=== PATIENT | female | born 1990 | race African-American/Black ===

== ENCOUNTER 2019-12-23 14:12 | Emergency (ER) | payer OTHER ==
[~2019-12-23] VITALS: Ht 175.3 cm; Wt 110.0 kg
[2019-12-23] MEDS ORDERED: LEVETIRACETAM 1000MG/100ML 100 ML IV ONE (15:45)
[2019-12-23 16:34] VITALS: BP 127/78
== END 2019-12-23 16:35 | disposition home or self-care (01) ==
LOC: ER 14:12
DX: S00.512A Abrasion of oral cavity, initial encounter (principal); R56.9 Unspecified convulsions; X58.XXXA Exposure to other specified factors, initial encounter; Y93.89 Activity, other specified; Y92.89 Other specified places as the place of occurrence of the external cause; Y99.8 Other external cause status
CPT/HCPCS: 96365; 99284; J1953

== ENCOUNTER 2021-11-16 14:41 | Emergency (ER) | payer OTHER ==
[~2021-11-16] VITALS: Ht 177.8 cm; Wt 144.0 kg
[2021-11-16] MEDS ORDERED: KEPPRA (14:59)
[2021-11-16] MEDS ORDERED: ACETAMINOPHEN 325MG TABLET PO STA (15:30)
[2021-11-16] MEDS ORDERED: LIDOCAINE 5% PATCH TOP SCH (15:30)
[2021-11-16] MEDS ORDERED: SODIUM CHLORIDE 0.9% 1,000 ML IV ONE (15:30)
[2021-11-16] MEDS ORDERED: LEVETIRACETAM 500MG/5ML CUP PO ONE (16:00)
[2021-11-16 17:29] LABS: BASOPHILS % 0.6 % (0.0-2.0); EOSINOPHILS % 0.1 % (0.0-5.0); HEMATOCRIT. 38.8 % (36.0-48.0); HEMOGLOBIN. 12.8 g/dL (12.0-16.0); LYMPHOCYTES % 15.1 % (20.0-50.0); MEAN CORPUSCULAR HEMOGLOBIN 26.8 pg (28.0-32.0); MEAN CORPUSCULAR VOLUME 81.1 fL (81.0-99.0); MEAN PLATELET VOLUME 8.1 fl (7.4-10.4); MONOCYTES % 7.6 % (2.0-8.0); NEUTROPHILS % 76.6 % (40.0-76.0); PLATELET 224 x1000/uL (130-400); RED BLOOD CELL COUNT 4.79 mill/uL (4.2-5.4); RED CELL DISTRIBUTION WIDTH 14.2 % (11.6-14.6)
[2021-11-16 17:37] VITALS: BP 134/83
[2021-11-16 17:38] LABS: CHLORIDE 109 mEq/L (98-107)
[2021-11-16] MEDS ORDERED: ACET-2708 MT (17:38)
[2021-11-16] MEDS ORDERED: IBUP-2029 MT (17:38)
[2021-11-16] MEDS ORDERED: LIDO700A15 TP (17:38)
[2021-11-16] MEDS ORDERED: BACL-141 MT (17:38)
[2021-11-16 17:43] LABS: ETHANOL BLOOD < 10 mg/dL
[2021-11-16 17:54] LABS: HCG SCREEN NEGATIVE
== END 2021-11-16 18:43 | disposition home or self-care (01) ==
LOC: ER 14:54
DX: M54.9 Dorsalgia, unspecified (principal); I10 Essential (primary) hypertension; R56.9 Unspecified convulsions
CPT/HCPCS: 36415; 71045; 80053; 80320; 83605; 83690; 84703; 85025; 96360; 99284; J7030; G0480

== ENCOUNTER 2024-01-04 17:52 | Emergency (ER) | payer MEDICAID, OTHER ==
[~2024-01-04] VITALS: Ht 182.9 cm; Wt 137.0 kg
[~2024-01-04 17:52] MED LIST: ACET-2708 MT; BACL-141 MT; IBUP-2029 MT; KEPPRA; LIDO700A15 TP
[2024-01-04 17:54] VITALS: TEMP 98.1; O2SAT 98
[2024-01-04] MEDS: LEVETIRACETAM 500MG TABLET PO ONE (18:34)
[2024-01-04] MEDS: LORAZEPAM 2MG/ML INJ IV ONE (19:07)
[2024-01-04 21:30] VITALS: BP 129/50; PULSE 94; RESP 14
== END 2024-01-04 21:58 | disposition home or self-care (01) ==
LOC: ER 17:52
DX: R56.9 Unspecified convulsions (principal)
CPT/HCPCS: 99283; 96374; J2060